=== PATIENT | male | born 2000 | race Caucasian/White ===

== ENCOUNTER 2018-05-14 21:52 | Emergency (ER) | payer OTHER ==
[2018-05-14 21:56] VITALS: BP 143/88
--- NOTE | 2018-05-14 22:04 | ER Report ---
History and Physical Time Seen By MD: 22:02 Hx. of Stated Complaint: PATIENT FELL OF STAIR RAILING ON TO OTHER STAIRS, PATIENT HAS SMALL LACERATION LEFT LATERAL POSTERIOR HEAD. HPI/ROS CHIEF COMPLAINT: scalp laceration HISTORY OF PRESENT ILLNESS: This is a 17 year old male. He has a scalp laceration left parietal. Fell of stair railing onto steps. No loss of consciousness. No nausea, headache, dizziness, vision changes. Used some Nuskin after cleaning with soap and water. Started bleeding again. Up to date on immunizations. Allergies: Coded Allergies: fentanyl (Verified Allergy, Intermediate, RASH, 05/14/18) Home Meds Active Scripts Cephalexin Monohydrate (CEPHALEXIN) 500 Mg Cap, 500 MG PO Q8H, #15 CAP 0 Refills Prov:YUMIKO REMY MD 05/14/18 Reviewed Nurses Notes: Yes Constitutional Vital Sign - Last 24 Hours 05/14/18 21:56 Temp 98.3 Pulse 88 Resp 12 B/P (MAP) 143/88 Pulse Ox 96 O2 Delivery Room Air Physical Exam General: alert, no distress Skin: Scalp, left parietal, about 3cm laceration. Sealed with Nuskin glue. Two small areas bleeding around the glue Medical Decision Making ED Course/Re-evaluation ED Course Cleaned with saline. Applied Dermabond over the areas where it was bleeding through. Controlled. Decision to Disposition Date: May 14, 2018 Decision to Disposition Time: 22:10 Depart Departure Latest Vital Signs Vital Signs Date Time Temp Pulse Resp B/P (MAP) Pulse Ox O2 Delivery O2 Flow Rate FiO2 05/14/18 21:56 98.3 88 12 143/88 96 Room Air Impression: Primary Impression: Scalp laceration Condition: Improved Disposition: HOME OR SELF-CARE New Scripts Cephalexin Monohydrate (CEPHALEXIN) 500 Mg Cap 500 MG PO Q8H, #15 CAP 0 Refills Prov: YUMIKO REMY MD 05/14/18 Patient Instructions: Skin Adhesive Care (ED) Problem Qualifiers Primary Impression: Scalp laceration Encounter type: initial encounter Qualified Codes: S01.01XA - Laceration without foreign body of scalp, initial encounter YUMIKO REMY MD May 14, 2018 22:04
[2018-05-14] MEDS ORDERED: OCTYL CYANOACRYLATE 1 APP APPL TP ONE (22:05)
[2018-05-14] MEDS ORDERED: CEPH500C24 PO (22:11)
== END 2018-05-14 22:15 | disposition home or self-care (01) ==
LOC: ER 22:06
DX: S01.01XA Laceration without foreign body of scalp, initial encounter (principal)
CPT/HCPCS: 99282